=== PATIENT | male | born 1950 | race Caucasian/White ===

== ENCOUNTER 2021-06-07 13:43 | Emergency (ER) | payer MEDICARE, SELFPAY ==
--- NOTE | 2021-06-07 13:59 | ED.URI ---
HPI - URI/Sore Throat General Chief Complaint: Upper Respiratory Infection Stated Complaint: Congetion Source: patient and RN notes reviewed Mode of arrival: ambulatory Limitations: no limitations History of Present Illness MD elicited complaint: sore throat, rhinorrhea and nasal congestion Onset (ago): day(s) (4) Consistency: constant Severity: moderate Description of mucous: yellow Able to tolerate fluids by mouth: Yes Exacerbating factors: nothing Relieving factors: nothing Context: sick contacts Treatments prior to arrival: cold medicine Related Data Home Medications Medication Instructions Recorded Confirmed amlodipine [Norvasc] 5 mg PO DAILY 06/07/21 06/07/21 aspirin [Aspirin Low Dose] 81 mg PO DAILY 06/07/21 06/07/21 cholecalciferol (vitamin D3) 50 mcg PO DAILY 06/07/21 06/07/21 clopidogrel [Plavix] 75 mg PO DAILY 06/07/21 06/07/21 diazepam [Valium] 2 mg PO TID PRN 06/07/21 06/07/21 glucagon [Baqsimi] 3 mg INTRANASAL ONCE 06/07/21 06/07/21 insulin degludec [Tresiba 40 unit SUBCUT HS 06/07/21 06/07/21 FlexTouch U-200] insulin lispro [Humalog KwikPen 1 sliding scale dose SUBCUT 06/07/21 06/07/21 Insulin] USEASDIRECTD isosorbide mononitrate 120 mg PO DAILY 06/07/21 06/07/21 metformin 500 mg PO BIDWMEAL 06/07/21 06/07/21 metoprolol succinate [Toprol XL] 100 mg PO DAILY 06/07/21 06/07/21 nitroglycerin 0.4 mg SUBLINGUAL Q5-15M PRN 06/07/21 06/07/21 ropinirole [Requip] 0.25 mg PO TID 06/07/21 06/07/21 rosuvastatin [Crestor] 40 mg PO DAILY 06/07/21 06/07/21 sacubitril-valsartan [Entresto] 1 tablet PO BID 06/07/21 06/07/21 sertraline 100 mg PO DAILY 06/07/21 06/07/21 torsemide [Demadex] 10 mg PO BID 06/07/21 06/07/21 Allergies Allergy/AdvReac Type Severity Reaction Status Date / Time empagliflozin Allergy Nausea and Verified 06/07/21 14:08 [From Jardiance] Vomiting ticagrelor [From Brilinta] Allergy Insomnia Verified 06/07/21 14:08 Review of Systems Review of Systems: All systems reviewed & are unremarkable except as noted in HPI and below PMFSH Past Medical History Medical History (Updated 06/07/21 @ 15:17 by Walter Spain MD) Congestive heart failure Hyperlipidemia Hypertension Type 2 diabetes mellitus Social History Social History (Updated 06/07/21 @ 14:33 by Walter Spain MD) Smoking status: Never smoker Alcohol intake: current Alcohol use details: occasional Exam Const: General: healthy appearing, no acute distress and alert Nutritional Appearance: well nourished Orientation/consciousness: patient oriented x3 HENMT: Head: normal to inspection Eyes: Conjunctivae: conjunctivae normal Pupils: Equal, round and reactive pupils present EOM: EOMs intact bilaterally Neck: Neck: normal visual inspection and no lymphadenopathy Resp: Effort & Inspection: normal respiratory effort Auscultation: clear to auscultation bilaterally Cardio: Rate: regular rate Rhythm: regular rhythm GI: GI Palp: Yes Soft to palpation and No Tenderness to palpation present (GI) Auscultation: normal bowel sounds Back/Spine/Pelvis: Cervical Spine: cervical ROM normal Thoracic/Lumbar Spine: thoraco-lumbar ROM normal Skin: General skin exam: normal color Rashes: no rashes Neuro: General: patient oriented x3, moves all extremities, no meningeal signs, no focal motor deficits and CN's II-XI intact bilaterally Speech: normal speech Gait exam (Neuro): Normal gait present Extrem: General: normal to inspection Psych: Appearance: grossly normal and well kempt Mental Status: mental status grossly normal Affect: normal affect Attitude: cooperative Thought content: Yes Normal thought content present Course Vital Signs Vital signs: Vital Signs Temperature 36.8 C 06/07/21 14:01 Pulse Rate 71 06/07/21 14:01 Respiratory Rate 20 06/07/21 14:01 Blood Pressure 124/72 06/07/21 14:01 Pulse Oximetry 98 06/07/21 14:01 Temperature 36.6 C 06/07/21 15:32 Pulse Rate 73 06/07/21
[2021-06-07 14:01] VITALS: BP 124/72; PULSE 71; RESP 20; TEMP 36.8; O2SAT 98
[2021-06-07 15:09] LABS: Influenza A QL RT-PCR Negative (Negative); Influenza B QL RT-PCR Negative (Negative); SARS-CoV-2 RNA PCR Negative (Negative)
[2021-06-07 15:32] VITALS: BP 142/85; PULSE 73; RESP 20; TEMP 36.6; O2SAT 97
== END 2021-06-07 15:33 | disposition home or self-care (01) ==
PROVIDERS: Emergency Provider Emergency Medicine
DX: J00 Acute nasopharyngitis [common cold] (principal); Z20.822 Contact with and (suspected) exposure to COVID-19; I50.9 Heart failure, unspecified; E78.5 Hyperlipidemia, unspecified; I10 Essential (primary) hypertension; E11.9 Type 2 diabetes mellitus without complications
CPT/HCPCS: 87502; 99283; C9803; U0003; U0005

== ENCOUNTER 2021-11-11 11:07 | Outpatient (CLI) | payer MEDICARE, SELFPAY ==
[2021-11-11 19:42] LABS: SARS-CoV-2 RNA PCR Positive (Negative)
== END 2021-11-11 11:08 | disposition home or self-care (01) ==
LOC: CHSLAB 11:14
DX: U07.1 COVID-19 (principal)
CPT/HCPCS: C9803; U0003; U0005

== ENCOUNTER 2021-11-20 13:36 | Inpatient (IN) | payer MEDICARE, SELFPAY ==
[2021-11-20] VITALS (7 sets, daily range): BP systolic 100–137; BP diastolic 58–77; PULSE 56–77; RESP 16–20; TEMP 36.9–37.6; O2SAT 97–100; BMI 27.5
--- NOTE | ~2021-11-20 | CT_ITS ---
EXAMINATION: CTA chest PE protocol DATE: 11/20/2021 21:32 INDICATION: sob TECHNIQUE: Computed tomography angiography (CTA) of the chest was performed with 100 mL Omnipaque-350 intravenous contrast timed to evaluate the pulmonary arteries. Coronal maximum intensity projection 3D-reconstructions were created by the technologist. The dose-length product (DLP) was 764.33 mGy-cm. Automated exposure control and iterative reconstruction technique were employed. COMPARISON: X-ray chest same date. FINDINGS: Lung parenchyma and airways: Multifocal small, somewhat nodular appearing opacities in the dependent right lung likely represent atelectasis or perhaps aspiration in the appropriate clinical context. Pleura: Unremarkable. Thoracic inlet, axillae and chest wall: Unremarkable. Thoracic aorta: Atherosclerotic calcification. Mediastinum: Normal. Heart and pericardium: Prior CABG. Cardiomegaly. Coronary artery calcifications: Heavy. Upper abdomen: No significant finding. Bones: No acute osseous finding. Pulmonary arteries: Study quality: Adequate. No pulmonary emboli detected. IMPRESSION: No CT evidence of acute pulmonary embolus. Reviewed, dictated and finalized at location K.
--- NOTE | ~2021-11-20 | XR_ITS ---
EXAMINATION: XR chest 2V DATE: 11/20/2021 14:14 INDICATION: Chest pain TECHNIQUE: AP and lateral views of the chest are obtained. COMPARISON: None available FINDINGS: The lungs are free of acute opacities. No pleural effusion or pneumothorax. The cardiomedia stinal silhouette is normal. There is moderate thoracic spondylosis. Median sternotomy wires and medi astinal surgical clips are seen, likely from prior coronary artery bypass grafting. IMPRESSION: 1. No acute cardiopulmonary abnormality. Reviewed, dictated and finalized at location A.
--- NOTE | 2021-11-20 13:42 | ECG_ITS ---
Measurements Intervals [place] Rate: 73 P: 50 AR: 188 QRS: 6 QRSD: 146 T: 141 QT: 448 QTc: 496 Interpretive Statements SINUS RHYTHM LEFT BUNDLE BRANCH BLOCK [120+ ms QRS DURATION, 80+ ms Q/S IN V1/V2, 85+ ms R IN I/aVL/V5/V6] ABNORMAL ECG NO PREVIOUS ECG AVAILABLE FOR COMPARISON Electronically Signed On 11-20-2021 17:24:20 CDT by Stan Bentley M.D.
[2021-11-20 14:26] LABS: Basophils Percent Auto 0.3 % (0.2-1.2); Eosinophils Absolute Auto 0.1 K/mm3 (0-0.3); Eosinophils Percent Auto 1.1 % (0-4.4); Hematocrit 39.6 % (42.0-52.0); Hemoglobin 13.5 g/dL (14.0-18.0); Immature Granulocyte Absolute 0.05 K/mm3 (0.00-0.031); Immature Granulocyte Percent A 0.5 % (0-0.5); Lymphocytes Absolute Auto 1.08 K/mm3 (0.9-3.2); Lymphocytes Percent Auto 11.3 % (18.3-44.2); Mean Corpuscular HGB Conc 34.1 g/dl (32-36); Mean Corpuscular Hemoglobin 30.8 pg (26-34); Mean Corpuscular Volume 90.4 fl (80-100); Mean Platelet Volume 9.9 fl (7.4-10.4); Monocytes Absolute Auto 0.6 K/mm3 (0.1-0.6); Monocytes Percent Auto 6.4 % (2.6-8.5); Neutrophils Absolute Auto 7.7 K/mm3 (1.3-6.7); Neutrophils Percent Auto 80.4 % (45.5-73.1); Platelet Count Result 310 k/mm3 (150-375); Red Blood Count 4.38 M/mm3 (4.6-6.20); Red Cell Distribution Width 13.4 % (11.5-14.5); White Blood Count 9.6 K/mm3 (4.5-10.0)
[2021-11-20 14:34] LABS: Partial Thromboplastin Time 24.3 SECONDS (22.3-36.8)
[2021-11-20 14:37] LABS: Alanine Aminotransferase 29 U/L (6-50); Albumin Level 4.5 g/dL (3.5-5.1); Alkaline Phosphatase 57 U/L (38-126); Anion Gap 14 mmol/L (8-16); Aspartate Amino Transferase 27 U/L (17-59); Blood Urea Nitrogen 26 mg/dL (9-20); Calcium 9.3 mg/dL (8.4-10.2); Carbon Dioxide 21 mmol/L (22-30); Chloride 101 mmol/L (98-107); Estimated CRCL calculation 43 ml/min; Estimated Glomerular Filt Rate 46; Glucose 161 mg/dL (65-110); Lipase 329 U/L (23-300); Potassium 4.1 mmol/L (3.4-5.0); Sodium 136 mmol/L (137-145)
[2021-11-20 14:47] LABS: Troponin I 0.015 ng/mL (0.000-0.034)
--- NOTE | 2021-11-20 15:55 | ED.CHESTPAIN ---
HPI - Chest Pain General Chief Complaint: Chest Pain Stated Complaint: N/V, chest pain Time Seen by Provider: 11/20/21 15:28 History of Present Illness HPI narrative: Patient is a 71-year-old male who presents ER with chest pain. Began at 11 AM while sitting. Pressure similar chest. Radiated to the left arm with some numbness. Improved but still present. Has history of multiple stents. Has known heart failure. 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 No exertional component. He did experience shortness of breath with nausea and diaphoresis when this occurred. Related Data Home Medications Medication Instructions Recorded Confirmed amlodipine 5 mg tablet (Norvasc) 5 mg PO DAILY 06/07/21 06/07/21 aspirin 81 mg tablet,delayed 81 mg PO DAILY 06/07/21 06/07/21 release (Carrie Low Dose Aspirin) cholecalciferol (vitamin D3) 50 50 mcg PO DAILY 06/07/21 06/07/21 mcg (2,000 unit) capsule clopidogrel 75 mg tablet (Plavix) 75 mg PO DAILY 06/07/21 06/07/21 diazepam 2 mg tablet (Valium) 2 mg PO TID PRN Anxiety 06/07/21 06/07/21 glucagon 3 mg/actuation nasal 3 mg intranasal ONCE 06/07/21 06/07/21 spray (Baqsimi) insulin degludec 200 unit/mL (3 40 unit subcut HS 06/07/21 06/07/21 mL) subcutaneous pen (Tresiba FlexTouch U-200 insulin) insulin lispro 100 unit/mL 1 sliding scale dose subcut 06/07/21 06/07/21 subcutaneous pen (Humalog KwikPen USEASDIRECTD (U-100) Insulin) isosorbide mononitrate 120 mg 120 mg PO DAILY 06/07/21 06/07/21 tablet,extended release 24 hr metformin 500 mg tablet 500 mg PO BIDWMEAL 06/07/21 06/07/21 metoprolol succinate 100 mg 100 mg PO DAILY 06/07/21 06/07/21 tablet,extended release 24 hr (Toprol XL) nitroglycerin 0.4 mg sublingual 0.4 mg sublingual Q5-15M PRN chest 06/07/21 06/07/21 tablet pain ropinirole 0.25 mg tablet 0.25 mg PO TID 06/07/21 06/07/21 rosuvastatin 40 mg tablet (Crestor) 40 mg PO DAILY 06/07/21 06/07/21 sacubitril 24 mg-valsartan 26 mg 1 tablet PO BID 06/07/21 06/07/21 tablet (Entresto) sertraline 100 mg tablet 100 mg PO DAILY 06/07/21 06/07/21 torsemide 10 mg tablet 10 mg PO BID 06/07/21 06/07/21 Allergies Allergy/AdvReac Type Severity Reaction Status Date / Time empagliflozin AdvReac Nausea and Verified 11/20/21 17:00 [From Jardiance] Vomiting ticagrelor [From Brilinta] AdvReac Insomnia Verified 11/20/21 17:00 Review of Systems Review of Systems: All systems reviewed & are unremarkable except as noted in HPI and below Constitutional: Constitutional: Denies chills, Denies fatigue and Denies fever(s) Comments: Diaphoresis ENT: Denies nasal congestion and Denies sore throat Cardiovascular: Cardiovascular: Reports chest pain, Denies rapid heart rate and Reports radiating jaw, neck or arm pain Respiratory: Respiratory: Denies cough, Reports dyspnea and Denies wheezing Gastrointestinal: Gastrointestinal: Denies abdominal pain, Reports nausea and Denies vomiting Musculoskeletal: Musculoskeletal: Denies back pain and Denies arthralgias Neurologic: Denies syncope, Denies focal weakness and Denies numbness PMFSH Past Medical History Medical History (Updated 11/20/21 @ 18:46 by Yong Dangelo MD) Congestive heart failure Hyperlipidemia Hypertension Type 2 diabetes mellitus Surgical History Surgical History (Updated 11/20/21 @ 15:56 by Yong Dangelo MD) History of coronary artery bypass graft History of percutaneous coronary intervention Social History Social History (Updated 06/07/21 @ 14:33 by Walter Spain MD) Smoking status: Never smoker Alcohol intake: current Alcohol use details: occasional Exam Narrative: GENERAL: Well-appearing, well-nourished, and in no acute distress. HEAD: Normocephalic, atraumatic. EYES: PERRL and EOMI. CHEST: Clear to auscultation. No respiratory distress. HEART: Regular rate and rhythm. Normal peripheral pulses. ABDOMEN: Soft, nontender, nondistended. EXTREMITIES: Normal range of motio
[2021-11-20 17:21] LABS: Troponin I 0.274 ng/mL (0.000-0.034)
[2021-11-20] MEDS: HEPARIN SODIUM 5,000 UNITS/ML VIAL 4000 UNITS IV PUSH (17:52)
[2021-11-20] MEDS: HEPARIN SOD/D5W 100 UNITS/ML 25,000 UNITS/250 ML BAG 10 UNITS IV CONT (17:53)
--- NOTE | 2021-11-20 18:27 | ADMGEN ---
This patient, Joon Mcfarland, was admitted to IMU Room 210-01 at 1811. Patient/family oriented to hospital policies and general routines including ID bracelet, bed and alarms, visiting hours, pain management, procedures, bathroom and other care routines, personal items, smoking policy, room service/diet, and visiting hours. Information on how to activate the Rapid Response Team has been discussed. Patient/Family are encouraged to report perceived risks to care and to ask questions if they do not understand what they are told or what they should do.
--- NOTE | 2021-11-20 18:52 | ADMGEN ---
This patient, Joon Mcfarland, was admitted to IMU Room 210-01 11/20/21 at 1811. Patient/family oriented to hospital policies and general routines including ID bracelet, bed and alarms, visiting hours, pain management, procedures, bathroom and other care routines, personal items, smoking policy, room service/diet, and visiting hours. Information on how to activate the Rapid Response Team has been discussed. Patient/Family are encouraged to report perceived risks to care and to ask questions if they do not understand what they are told or what they should do.
[2021-11-20 20:05] LABS: Glucose Point of Care 119 mg/dl (65-105)
--- NOTE | 2021-11-20 20:37 | PM.IMHP ---
H&P: HPI History of Present Illness Date/Time: 11/20/21 20:37 Chief Complaint: chest pain Narrative: This is a 71-year-old male patient with the past medical history of coronary artery disease with quadruple bypass and 5 stents. His last stent was in 2019. He also has a medical history of being diabetic as well. The patient stated he has been taking and aspirin Plavix as prescribed. The patient stated he was taking nitro at home and that typically gets rid of his chest pain. The patient stated that he had chest pain that started around 11:00 a.m. this morning when he was just sitting around. The pressure was similar to when he had a myocardial infarction last time it radiated to his left arm and he had some numbness. It has improved some but is still present. He takes an aspirin every day but he was given 3 baby aspirin EN route to the hospital. His hematologist is at [facility]. The patient does have a history of CHF and has a device implanted that tells him when he has fluid overload. Troponin was 0.015 and the 2nd was 0.274. EKG was read as left bundle branch block. Cardiology has been called to consult. The patient is being admitted to observation status and change to inpatient status on the date of service of 11/20/2021 Review of Systems Review of Systems: See HPI All systems reviewed & are unremarkable except as noted in HPI and below Constitutional: Constitutional: Reports as per HPI and Reports no additional constitutional complaints Eyes: Eyes: Reports as per HPI and Reports no additional eye complaints ENT: Reports system reviewed and no additional complaints, except as documented and Reports Normal hearing present Cardiovascular: Cardiovascular: Reports no additional cardiovascular complaints Respiratory: Respiratory: Reports no additional respiratory complaints and Reports no additional respiratory complaints Gastrointestinal: Gastrointestinal: Reports as per HPI and Reports no additional gastrointestinal complaints Musculoskeletal: Musculoskeletal: Reports no additional musculoskeletal complaints Integumentary/Breasts: Skin/Breast: Reports system reviewed and no additional complaints, except as docu and Reports as per HPI Neurologic: Reports system reviewed and no additional complaints, except as documented, Reports as per HPI and Reports Normal hearing present Psychiatric: Psychiatric: Reports no additional psychiatric complaints and Reports as per HPI Endocrine: Endocrine: Reports no additional endocrine complaints Hematologic/Lymphatic: Hematologic/Lymphatic: Reports no additional hematologic/lymphatic complaints Allergic/Immunologic: Allergic/Immunologic: Reports no additional allergic/immunologic complaints [facility] Past Medical History Medical History (Updated 11/20/21 @ 20:50 by Tri Blankenship NP) Anxiety CAD (coronary artery disease) Congestive heart failure Depression Hyperlipidemia Hypertension Neuropathy RLS (restless legs syndrome) Type 2 diabetes mellitus Surgical History Surgical History (Updated 11/20/21 @ 20:51 by Tri Blankenship NP) History of coronary artery bypass graft Quadruple History of coronary artery stent placement X5 History of percutaneous coronary intervention The patient has a device called cardiac Mems that evaluates fluid overload and CHF Family History Family History (Updated 11/20/21 @ 20:51 by Tri Blankenship NP) Father COPD (chronic obstructive pulmonary disease) Mother COPD (chronic obstructive pulmonary disease) Heart disease Social History Social History (Updated 11/20/21 @ 20:52 by Tri Blankenship NP) Social History: The patient lives with his and 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 The patient has 2 children. His is the durable power energy attorney for healthcare. The patient probably drinks 6-7 beers a week. Lifelong nonsmoker does not use any marijuana or illicit drugs. Code stat
[2021-11-20] MEDS: METOPROLOL TARTRATE 12.5 MG TABLET PO (23:17)
[2021-11-20] MEDS: GABAPENTIN 300 MG CAPSULE PO (23:17)
[2021-11-20] MEDS: SACUBITRIL/VALSARTAN 49-51 MG TABLET 1 TABLET PO (23:18)
[2021-11-20] MEDS: SERTRALINE HCL 50 MG TABLET 100 MG PO (23:18)
[2021-11-20] MEDS: rOPINIRole HCL 0.25 MG TABLET PO (23:18)
[2021-11-20] MEDS: INSULIN GLARGINE (*BKC) 100 UNITS/ML 44 UNITS SUB-Q (23:22)
[2021-11-20 23:54] LABS: Anion Gap 12 mmol/L (8-16); Blood Urea Nitrogen 27 mg/dL (9-20); Calcium 9.5 mg/dL (8.4-10.2); Carbon Dioxide 29 mmol/L (22-30); Chloride 99 mmol/L (98-107); Estimated CRCL calculation 43 ml/min; Estimated Glomerular Filt Rate 46; Glucose 132 mg/dL (65-110); Magnesium 1.9 mg/dL (1.6-2.3); Potassium 4.5 mmol/L (3.4-5.0); Sodium 140 mmol/L (137-145)
[2021-11-21] VITALS (17 sets, daily range): BP systolic 91–120; BP diastolic 48–65; PULSE 55–75; RESP 16–20; TEMP 36.4–37.2; O2SAT 94–97
[2021-11-21 00:48] LABS: Partial Thromboplastin Time 52.6 SECONDS (22.3-36.8)
[2021-11-21] MEDS: HEPARIN SODIUM 5,000 UNITS/ML VIAL 4000 UNITS IV PUSH (01:01)
[2021-11-21 02:04] LABS: Hemoglobin A1C 7.4 % (<5.7)
[2021-11-21 07:39] LABS: Basophils Percent Auto 0.2 % (0.2-1.2); Eosinophils Absolute Auto 0.1 K/mm3 (0-0.3); Eosinophils Percent Auto 1.5 % (0-4.4); Hematocrit 41.9 % (42.0-52.0); Hemoglobin 13.6 g/dL (14.0-18.0); Immature Granulocyte Absolute 0.01 K/mm3 (0.00-0.031); Immature Granulocyte Percent A 0.1 % (0-0.5); Lymphocytes Percent Auto 22.3 % (18.3-44.2); Mean Corpuscular HGB Conc 32.5 g/dl (32-36); Mean Corpuscular Hemoglobin 30.6 pg (26-34); Mean Corpuscular Volume 94.4 fl (80-100); Mean Platelet Volume 9.8 fl (7.4-10.4); Monocytes Absolute Auto 0.6 K/mm3 (0.1-0.6); Monocytes Percent Auto 7.2 % (2.6-8.5); Neutrophils Absolute Auto 5.5 K/mm3 (1.3-6.7); Neutrophils Percent Auto 68.7 % (45.5-73.1); Platelet Count Result 289 k/mm3 (150-375); Red Blood Count 4.44 M/mm3 (4.6-6.20); Red Cell Distribution Width 13.8 % (11.5-14.5); White Blood Count 8.1 K/mm3 (4.5-10.0)
[2021-11-21 07:49] LABS: Lactic Acid Reflex 1.4 mmol/L (0.7-2.0)
[2021-11-21 07:51] LABS: Alanine Aminotransferase 30 U/L (6-50); Albumin Level 4.1 g/dL (3.5-5.1); Alkaline Phosphatase 57 U/L (38-126); Anion Gap 10 mmol/L (8-16); Aspartate Amino Transferase 87 U/L (17-59); Bilirubin,Total 0.7 mg/dL (0.2-1.3); Blood Urea Nitrogen 26 mg/dL (9-20); Calcium 9.4 mg/dL (8.4-10.2); Carbon Dioxide 30 mmol/L (22-30); Chloride 100 mmol/L (98-107); Creatine Kinase 418 U/L (55-170); Estimated CRCL calculation 43 ml/min; Estimated Glomerular Filt Rate 46; Glucose 142 mg/dL (65-110); Lactate Dehydrogenase 233 U/L (120-246); Magnesium 2.2 mg/dL (1.6-2.3); Sodium 140 mmol/L (137-145)
[2021-11-21 07:52] LABS: Partial Thromboplastin Time 122.1 SECONDS (22.3-36.8)
[2021-11-21 08:39] LABS: Glucose Point of Care 126 mg/dl (65-105)
[2021-11-21] MEDS: SACUBITRIL/VALSARTAN 49-51 MG TABLET 1 TABLET PO ×2 (09:34→20:36)
[2021-11-21] MEDS: ROSUVASTATIN 10 MG TABLET 40 MG PO (09:34)
[2021-11-21] MEDS: METOPROLOL TARTRATE 12.5 MG TABLET PO ×2 (09:34→22:59)
[2021-11-21] MEDS: rOPINIRole HCL 0.25 MG TABLET PO ×2 (09:34→14:55)
[2021-11-21] MEDS: TORSEMIDE 10 MG TABLET PO ×2 (09:35→16:37)
--- NOTE | 2021-11-21 11:43 | PM.CNCAR ---
Assessment and Plan Assessment and plan (1) ACS (acute coronary syndrome): Code(s): I24.9 - Acute ischemic heart disease, unspecified Status: Acute Assessment and Plan: Will continue heparin. I am not sure why aspirin and clopidogrel are being held but will resume aspirin 81 mg p.o. daily as well as clopidogrel 75 mg p.o. daily. Metoprolol 12.5 mg p.o. b.i.d. is added. Continue isosorbide, rosuvastatin, Entresto Hold metformin. He will be kept NPO after midnight for coronary angiogram tomorrow. 2D echocardiogram Doppler will also be ordered and reviewed. (2) CAD (coronary artery disease): Code(s): I25.10 - Atherosclerotic heart disease of [place] coronary artery without angina pectoris Status: Acute Assessment and Plan: Will request and review records from [facility] (3) Hypertension: Code(s): I10 - Essential (primary) hypertension Status: Acute Assessment and Plan: At goal (4) Type 2 diabetes mellitus: Code(s): E11.9 - Type 2 diabetes mellitus without complications Status: Acute Assessment and Plan: Per hospitalist (5) Hyperlipidemia: Code(s): E78.5 - Hyperlipidemia, unspecified Status: Acute Assessment and Plan: On high-dose statin (6) Congestive heart failure: Code(s): I50.9 - Heart failure, unspecified Status: Acute Assessment and Plan: On Entresto History of Present Illness History of Present Illness Consult date/time: 11/21/21 11:43 Requesting physician: Yong Dangelo MD Consult reason: chest pain Reason For Visit: Chest Pain Narrative: Reason consultation: Chest pain, ACS Date of service 11/21/2021 Requesting physician: Dr. Dangelo History patient is a 71-year-old male who has history of coronary disease and had bypass in [facility]. This was a 4 vessel bypass at that time. Since then he has had at least 5 stents. Most recent stent was in 2019 at [facility]. He follows with Luis Fernando Gonzalez at [facility] but recently moved to the [facility]. Yesterday he started to develop some tightness in his chest at about 11 30 the morning. It was achiness. It felt similar to his previous anginal pain. He took 2 sublingual nitroglycerines which is not particularly help his symptoms but shortly thereafter he started to have nausea and vomiting. EMS was called and he was brought directly to [facility]. While it [facility] he was triaged and then sent to the waiting room. He eventually he was seen in the emergency department. EKG did show left bundle branch block. Symptoms gradually started to fade away over period of a few hours. He did have some and a numbness in the left arm. He was initially sweaty and short of breath. He has not had any further chest tightness or pressure since yesterday afternoon. Troponins have turned positive and most recent troponin is over 2. Review of Systems Review of Systems: All systems reviewed & are unremarkable except as noted in HPI and below Constitutional: Constitutional: Denies body ache(s) Eyes: Eyes: Denies blurry vision ENT: Reports Normal hearing present Cardiovascular: Cardiovascular: Reports chest pain Respiratory: Respiratory: Denies chest congestion Gastrointestinal: Gastrointestinal: Denies abdominal pain Genitourinary: Genitourinary: Denies hematuria Musculoskeletal: Musculoskeletal: Denies back pain Integumentary/Breasts: Skin/Breast: Denies dry skin Neurologic: Denies confusion Psychiatric: Psychiatric: Denies anxiety Endocrine: Endocrine: Denies excessive sweating Hematologic/Lymphatic: Hematologic/Lymphatic: Denies easy bleeding Allergic/Immunologic: Allergic/Immunologic: Denies GI upset with certain foods PMFSH Past Medical History Medical History Anxiety CAD (coronary artery disease) Congestive heart failure Depression
[2021-11-21 11:53] LABS: Glucose Point of Care 217 mg/dl (65-105)
--- NOTE | 2021-11-21 11:56 | ECG_ITS ---
Measurements Intervals [place] Rate: 55 P: 50 [place]: 210 QRS: -26 QRSD: 137 T: 149 QT: 503 QTc: 485 Interpretive Statements SINUS BRADYCARDIA WITH FIRST DEGREE AV BLOCK INCOMPLETE LEFT BUNDLE BRANCH BLOCK ABNORMAL ECG COMPARED TO ECG 11/20/2021 13:42:22 LEFT BUNDLE BRANCH BLOCK IS NOW INCOMPLETE Electronically Signed On 11-22-2021 16:49:02 CDT by Krishna Gray M.D.
--- NOTE | 2021-11-21 14:24 | PM.IMPN ---
Progress Note: A&P Assessment and Plan (1) Non-ST elevation ND (NSTEMI): Code(s): I21.4 - Non-ST elevation (NSTEMI) myocardial infarction Status: Acute Assessment and Plan: -continue to trend troponins. The 1st set was negative and the 2nd troponin was 0.274. The patient has a strong cardiac history with quadruple bypass and 5 stents -the patient had tried nitro at home and also takes aspirin at home as well as Plavix -cardiology has been consulted. Further recommendation per Cardiology. -continue with heparin drip -I will hold aspirin and Plavix for now. -analgesics as needed 11/21/2021 interval history: 71-year-old male with history of coronary artery disease status post CABG and 5 stents presented with chest pain is found to have elevated tropes currently on heparin drip. seen by cardiology resume aspirin Plavix and added metoprolol 12.5 mg b.i.d. and continue isosorbide nitrate, Crestor, and entresto, will hold metformin, patient is scheduled to have cardiac catheterization tomorrow will keep the patient NPO after midnight will follow-up and further recommendation to follow (2) CAD (coronary artery disease): Code(s): I25.10 - Atherosclerotic heart disease of [place] coronary artery without angina pectoris Status: Acute Assessment and Plan: -history of a quadruple bypass with 5 stents. 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 -continue amlodipine as blood pressure allows (4) Type 2 diabetes mellitus: Code(s): E11.9 - Type 2 diabetes mellitus without complications Status: Acute Assessment and Plan: -hold metformin in the event that he may need to go to cardiac catheterization -Accu-Cheks AC and HS with sliding scale (5) Anxiety: Code(s): F41.9 - Anxiety disorder, unspecified Status: Acute Assessment and Plan: -continue with home medication of volume (6) Hyperlipidemia: Code(s): E78.5 - Hyperlipidemia, unspecified Status: Acute Assessment and Plan: -continue with rosuvastatin (7) Congestive heart failure: Code(s): I50.9 - Heart failure, unspecified Status: Acute Assessment and Plan: -the patient is on Entresto we can continue with that and monitor his BUN and creatinine -continue Toprol -continue torsemide if blood pressure allows. (8) Neuropathy: Code(s): G62.9 - Polyneuropathy, unspecified Status: Acute Assessment and Plan: -continue gabapentin (9) Depression: Code(s): F32.A - Depression, unspecified Status: Acute Assessment and Plan: -continue sertraline (10) RLS (restless legs syndrome): Code(s): G25.81 - Restless legs syndrome Status: Acute Assessment and Plan: -continue gabapentin -continue Requip Subjective Date/time seen: 11/21/21 14:24 HPI-Narrative: This is a 71-year-old male patient with the past medical history of coronary artery disease with quadruple bypass and 5 stents.? His last stent was in 2019.? He also has a medical history of being diabetic as well.? The patient stated he has been taking and aspirin Plavix as prescribed.? The patient stated he was taking nitro at home and that typically gets rid of his chest pain.? The patient stated that he had chest pain that started around 11:00 a.m. this morning when he was just sitting around.? The pressure was similar to when he had a myocardial infarction last time it radiated to his left arm and he had some numbness.? It has improved some but is still present.? He takes an aspirin every day but he was given 3 baby aspirin EN route to the hospital.? His taxi cab driver is at [facility].? The patient does have a history of CHF and has a device implanted that tells him when he
[2021-11-21 14:34] LABS: Partial Thromboplastin Time 81.8 SECONDS (22.3-36.8)
[2021-11-21] MEDS: HEPARIN SOD/D5W 100 UNITS/ML 25,000 UNITS/250 ML BAG 12 UNITS IV CONT (14:54)
[2021-11-21] MEDS: CLOPIDOGREL BISULFATE 75 MG TABLET PO (14:55)
[2021-11-21] MEDS: ASPIRIN 81 MG ENTERIC TABLET PO (14:55)
[2021-11-21 16:56] LABS: Glucose Point of Care 181 mg/dl (65-105)
[2021-11-21 19:58] LABS: Glucose Point of Care 238 mg/dl (65-105)
[2021-11-21] MEDS: INSULIN GLARGINE (*BKC) 100 UNITS/ML 44 UNITS SUB-Q (20:30)
[2021-11-21] MEDS: GABAPENTIN 300 MG CAPSULE PO (20:30)
[2021-11-21] MEDS: SERTRALINE HCL 50 MG TABLET 100 MG PO (20:36)
[2021-11-21 21:26] LABS: Partial Thromboplastin Time 65.1 SECONDS (22.3-36.8)
[2021-11-21] MEDS: HEPARIN SODIUM 5,000 UNITS/ML VIAL 3500 UNITS IV PUSH (21:47)
[2021-11-22] VITALS (29 sets, daily range): BP systolic 89–125; BP diastolic 49–71; PULSE 52–70; RESP 12–20; TEMP 35.9–36.9; O2SAT 91–98; BMI 27.8
--- NOTE | 2021-11-22 | ECHO_ITS ---
Patient Info Name: Joon Mcfarland Age: 71 years : 1950 Gender: Male Ht: 71 in Wt: 200 lbs BSA: 2.15 m2 HR: 57 bpm BP: 106 / 58 mmHg Heart Rhythm: Sinus Rhythm Technical Quality: Fair Exam Date: 11/22/2021 8:36 AM Exam Location: [facility] Pulmonary Patient Status: Inpatient Admit Date: 11/20/2021 Staff Ordering Physician: Stan Bentley MD Signaler: Pina Ruelas RDCS Attending Provider: Gerardo Fajardo DO Referring Physician: Mc HARRIS; Exam Type: CA echo dop color flow w con Study Info Indications - acs Complete two-dimensional, color flow and Doppler transthoracic echocardiogram is performed with contrast to opacify the left ventricle and to improve the deliniation of the left ventricle endocardial borders. Contrast/Agitated Saline Contrast/Ag. Saline: Definity Amount: 3.00 ml Administered By: Pina Ruelas RDCS Existing IV Access: Yes IV Access Condition: patent with no signs of infiltration Summary 1. Definity contrast used to improve visualization. 2. Posterior segment is akinetic. 3. Left ventricular systolic function is moderately reduced, estimated at 35-40%. 4. Left atrial chamber dimension is moderately enlarged. 5. There is mild aortic valve sclerosis. 6. The mitral valve annulus is moderately calcified. Left Ventricle Left ventricular chamber dimension is mildly enlarged. Left ventricular systolic function is moderately reduced, estimated at 35-40%. There is mild concentric increased left ventricular wall thickness. The left ventricular diastolic function is grade I diastolic dysfunction. Definity contrast used to improve visualization. Posterior segment is akinetic. Right Ventricle Right ventricular chamber dimension is normal. Left Atria Left atrial chamber dimension is moderately enlarged. Right Atria Right atrial chamber dimension is normal. Aortic Valve The aortic valve is trileaflet. There is mild aortic valve sclerosis. Pulmonic Valve The pulmonic valve is not well visualized. Mitral Valve The mitral valve has normal leaflets. The mitral valve annulus is moderately calcified. Tricuspid Valve The tricuspid valve leaflets are normal. Pericardium/Pleural The pericardium appears normal. Aorta The aortic root size at the sinus of Valsalva is normal. Left Ventricular Outflow Tract Name Value Normal LVOT 2D LVOT Diameter 2.05 cm LVOT Doppler LVOT Peak Gradient 1 mmHg LVOT Mean Gradient 1 mmHg LVOT VTI 14.36 cm LVOT VTI/AV VTI Ratio 0.55 LVOT Stroke Volume 47.40 ml LVOT CO 2.38 l/min LVOT CI 1.11 L/min/m2 Pulmonic Valve Name Value Normal RVOT Doppler
[2021-11-22 05:07] LABS: Partial Thromboplastin Time 141.3 SECONDS (22.3-36.8)
[2021-11-22 07:50] LABS: Glucose Point of Care 110 mg/dl (65-105)
[2021-11-22] MEDS: SODIUM CHLORIDE 0.9% IV 500 ML 100 ML IV CONT (09:08)
[2021-11-22] MEDS: PERFLUTREN LIPID MICROSPHERES 1.5 ML VIAL DILUTED TO 10 ML TOTAL VOLUME IV PUSH (09:09)
[2021-11-22] MEDS: SACUBITRIL/VALSARTAN 49-51 MG TABLET 1 TABLET PO ×2 (09:10→20:12)
[2021-11-22] MEDS: TORSEMIDE 10 MG TABLET PO ×2 (09:10→16:19)
[2021-11-22] MEDS: ROSUVASTATIN 10 MG TABLET 40 MG PO (09:10)
[2021-11-22] MEDS: rOPINIRole HCL 0.25 MG TABLET PO ×2 (09:10→16:19)
--- NOTE | 2021-11-22 09:10 | IVDEFINITY ---
Prior to administration of IV Definity the patient was educated on the risks and benefits of the imaging enhancing agent including potential adverse side effects. The patient verbalized understanding. Allergies were verified. No exclusion criteria were identified and at least one of the following inclusion criteria were met: 1) physician request, 2) patient technically difficult to image (per the [place] [employer]ocardi[employer] guidelines of two or more segments not discernable within the apical view), or 3) questionable left ventricular function. ?
[2021-11-22] MEDS: METOPROLOL TARTRATE 12.5 MG TABLET PO ×2 (09:11→20:13)
[2021-11-22] MEDS: CLOPIDOGREL BISULFATE 75 MG TABLET PO (10:34)
[2021-11-22] MEDS: ASPIRIN 81 MG ENTERIC TABLET PO (10:34)
[2021-11-22] MEDS: HEPARIN SOD/D5W 100 UNITS/ML 25,000 UNITS/250 ML BAG 11 UNITS IV CONT (10:36)
--- NOTE | 2021-11-22 10:57 | WPDMODSED ---
Moderate Sedation Note-Pt Data Patient Data Diagnosis: acute coronary syndrome Present Complaint: chest pain Procedure to be performed/Plan: left heart catheterization with vein graft and AZALIA graft angiography Allergies Allergy/AdvReac Type Severity Reaction Status Date / Time dulaglutide [From Trulicity] AdvReac Nausea and Verified 11/22/21 10:58 Vomiting empagliflozin AdvReac Nausea and Verified 11/20/21 20:53 [From Jardiance] Vomiting semaglutide [From Ozempic] AdvReac Nausea and Verified 11/22/21 10:58 Vomiting ticagrelor [From Brilinta] AdvReac Insomnia Verified 11/22/21 10:57 Home Medications Medication Instructions Recorded Confirmed Type aspirin 81 mg tablet,delayed 81 mg PO DAILY 06/07/21 11/20/21 History release (Carrie Low Dose Aspirin) cholecalciferol (vitamin D3) 50 50 mcg PO DAILY 06/07/21 11/20/21 History mcg (2,000 unit) capsule clopidogrel 75 mg tablet (Plavix) 75 mg PO DAILY 06/07/21 11/20/21 History insulin degludec 200 unit/mL (3 44 unit subcut HS 06/07/21 11/20/21 History mL) subcutaneous pen (Tresiba FlexTouch U-200 insulin) insulin lispro 100 unit/mL 1 sliding scale dose subcut 06/07/21 11/20/21 History subcutaneous pen (Humalog KwikPen USEASDIRECTD (U-100) Insulin) metformin 500 mg tablet 500 mg PO BIDWMEAL 06/07/21 11/20/21 History nitroglycerin 0.4 mg sublingual 0.4 mg sublingual Q5-15M PRN chest 06/07/21 11/20/21 History tablet pain ropinirole 0.25 mg tablet 0.25 mg PO TID 06/07/21 11/20/21 History rosuvastatin 40 mg tablet (Crestor) 40 mg PO DAILY 06/07/21 11/20/21 History sertraline 100 mg tablet 100 mg PO HS 06/07/21 11/20/21 History torsemide 10 mg tablet 10 mg PO BID 06/07/21 11/20/21 History gabapentin 300 mg capsule 300 mg PO HS 11/20/21 11/20/21 History glucagon 3 mg/actuation nasal 3 mg intranasal ONCE PRN 11/20/21 11/20/21 History spray (Baqsimi) Hypoglycemia ketoconazole 2 % topical cream 1 applic topical DAILY PRN fungal 11/20/21 11/20/21 History sacubitril 49 mg-valsartan 51 mg 1 tablet PO BID 11/20/21 11/20/21 History tablet (Entresto) Current Medications: Active Medications Acetaminophen (Acetaminophen 325 Mg Tablet) 650 mg PO Q4H PRN PRN Reason: Mild Pain (1-3) or Fever Hydrocodone Bitart/Acetaminophen (Hydrocodone/Acetaminophen (*Crx) 5-325 Mg Tablet) 1 tab PO Q4H PRN PRN Reason: Pain Rated 4-6 Aspirin (Aspirin 81 Mg Enteric Tablet) 81 mg PO [facility] Last Admin: 11/22/21 10:34 Dose: 81 mg Clopidogrel Bisulfate (Clopidogrel Bisulfate 75 Mg Tablet) 75 mg PO [facility] Last Admin: 11/22/21 10:34 Dose: 75 mg Dextrose (Dextrose 50% 25 Gm/50 Ml Syringe) 12.5 gm IV PUSH PRN PRN; Protocol PRN Reason: Hypoglycemia Gabapentin (Gabapentin 300 Mg Capsule) 300 mg PO [facility] Last Admin: 11/21/21 20:30 Dose: 300 mg Glucagon (Glucagon For Inj 1 Mg Vial) 1 mg IM PRN PRN; Protocol PRN Reason: Hypoglycemia Glucose (Glucose Oral Gel 15 Gm Of Glucse In 37.5 Gm Tube) 15 gm PO PRN PRN; Protocol PRN Reason: Hypoglycemia Heparin Sodium (Porcine) (Heparin Sodium 5,000 Units/Ml Vial) 4,000 units IV PUSH PRN PRN PRN Reason: aPTT less than 55 seconds Last Admin: 11/21/21 01:01 Dose: 4,000 units Heparin Sodium (Porcine) (Heparin Sodium 5,000 Units/Ml Vial) 3,500 units IV PUSH PRN PRN PRN Reason: aPTT 55 - 70 seconds Last Admin: 11/21/21 21:47 Dose: 3,500 units Heparin Sodium/Dextrose (Heparin Sodium/D5w 100 Units/Ml) 25,000 units in 250 mls @ 11 mls/hr IV CONT .[id number] [facility]; Protocol Last Admin: 11/22/21 10:36 Dose: 1,100 units/hr, 11 mls/hr Dextrose (Dextrose 5% 1,000 Ml) 1,000 mls @ 100 mls/hr IVPB PRN PRN; Protocol PRN Reason: Hypoglycemia Sodium Chloride (Normal Saline Iv) 500 mls @ 100 mls/hr IV CONT .Q5H CRISTHIAN Last Admin: 11/22/21 09:08 Dose: 100 mls/hr Insulin Aspart (Insulin Aspart (*Bkc) 100 Units/Ml) 2 - 5 units SUB-Q TIDWM CRISTHIAN; Protocol Last Admin: 11/22/21 07:53 Dose: Not Given Insulin Glargine (I
--- NOTE | 2021-11-22 11:37 | WPDCARDPROC ---
Cardiac Cath Procedure Note Date of procedure:: 11/22/21 Performing physician:: Krishna Gary MD Indication:: Acute coronary syndrome Brief clinical history:: this is a 71-year-old man with well known multivessel coronary disease who receives his care elsewhere. He was transferred here over the weekend from an outlying hospital after an episode of chest pain and a modest troponin rise. His ECG demonstrates left bundle branch block. Old records regarding of this available at this hospital. Apparently the patient underwent bypass grafting 2000. According to previous cath reports that have been obtained vein grafts to his right coronary and circumflex are known to be closed. AZALIA to his LAD and vein graft to a diagonal are known to be open. He appears to have evidence of moderate ischemic cardiomyopathy. In this setting a follow-up angiogram has been recommended. Procedure Procedure performed:: Coronary angiography angiography of saphenous vein to diagonal left internal mammary graft angiography Sedation/Medication given:: fentanyl 50 mg Versed 2 mg case start time 11:08 a.m. case end time 11:20 a.m. sedation provided by Ascencion Hampton RN, trained observer Access site:: right femoral artery Estimated blood loss:: 20 cc Procedure note:: this patient was brought to the cardiac catheterization lab in the postabsorptive state where the right femoral triangle was prepared and draped in the normal fashion. Anesthesia was provided with 1% lidocaine infiltrated locally. Using Seldinger technique the right femoral artery was punctured and a 5 Uzbek vascular sheath was placed. because of renal insufficiency I elected not to perform a left ventriculogram. A 5 Uzbek FL4 catheter was used to engage and inject the left coronary artery in the WIGGINS caudal and BRADLEY cranial projections. Following this a 5 Uzbek JR4 catheter was used to and engaged the [place] right coronary artery as well as the vein graft to the diagonal as well as the left internal mammary. The cineangiograms were then reviewed and the case was terminated the patient was taken to the holding area for manual sheath removal. 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 Findings:: Hemodynamics: Central aortic pressure was 117/56. The left ventricle was not entered during this procedure left main coronary artery is of medium caliber and has a distal 90% stenosis. The left anterior descending is a 50 severely diffusely diseased artery that is 100% occluded after a small 1st septal perforating branch takes its origin. The circumflex is a severely diffusely diseased artery that is 100% occluded proximally. Right coronary artery is large in caliber and was dominant to the posterior circulation. The right coronary artery is heavily calcified there is a visible stent material in the 2nd portion of the RCA. In this area there is about 40% stenosis. Proximally and distally there are diffuse atherosclerotic irregularities but no significant stenosis is identified. The RPDA is patent and mildly disease. The RPL branch is 100% occluded proximally. According to the reports this is known to be chronic. Saphenous vein graft to the diagonal was engaged and injected is a moderate-sized caliber of saphenous vein. There is stent material in a long segment of this vein graft most of which is nicely patent. There is about 40-50% stenosis in the mid shaft segment of this where the stent material is located. The anastomosis to the diagonal is patent it fills small diagonal branch nicely. Injection of the left internal mammary shows it is a medium caliber segment of AZALIA it is nicely patent without any significant degeneration or tortuosity. Its anastomosis into the LAD is patent the LAD itself is a medium caliber vessel and is filled down to the apex from the AZALIA. Conclusion:: 1Karly Funes
[2021-11-22 11:43] LABS: Activated Clotting Time 127 SEC (74-137)
[2021-11-22 14:51] LABS: Glucose Point of Care 76 mg/dl (65-105)
[2021-11-22 15:13] LABS: Partial Thromboplastin Time 24.6 SECONDS (22.3-36.8)
[2021-11-22] MEDS: SODIUM CHLORIDE 0.9% IV 1,000 ML 125 ML IV CONT (16:18)
--- NOTE | 2021-11-22 17:19 | PM.IMPN ---
Progress Note: A&P Assessment and Plan (1) Non-ST elevation [place] (NSTEMI): Code(s): I21.4 - Non-ST elevation (NSTEMI) myocardial infarction Status: Acute Assessment and Plan: -continue to trend troponins. The 1st set was negative and the 2nd troponin was 0.274. The patient has a strong cardiac history with quadruple bypass and 5 stents -the patient had tried nitro at home and also takes aspirin at home as well as Plavix -cardiology has been consulted. Further recommendation per Cardiology. -continue with heparin drip -I will hold aspirin and Plavix for now. -analgesics as needed 11/21/2021 interval history: 71-year-old male with history of coronary artery disease status post CABG and 5 stents presented with chest pain is found to have elevated tropes currently on heparin drip. seen by cardiology resume aspirin Plavix and added metoprolol 12.5 mg b.i.d. and continue isosorbide nitrate, Crestor, and entresto, will hold metformin, patient is scheduled to have cardiac catheterization tomorrow will keep the patient NPO after midnight will follow-up and further recommendation to follow. 11/22/2021 interval history: 71-year-old male with history of coronary artery disease status post CABG and 5 stents presented with chest pain was found to have elevated tropes currently on heparin drip. seen by cardiology resume aspirin Plavix and added metoprolol 12.5 mg b.i.d. and continue isosorbide nitrate, Crestor, and entresto, will hold metformin, today patient had a cardiac catheterization it showed similar stenosis of coronary artery disease, no intervention was done, inbound sales consultant recommended patient to follow with his primary inbound sales consultant, patient remains clinically stable possible discharge the patient home tomorrow. (2) CAD (coronary artery disease): Code(s): I25.10 - Atherosclerotic heart disease of [place] coronary artery without angina pectoris Status: Acute Assessment and Plan: -history of a quadruple bypass with 5 stents. -patient's inbound sales consultant is at [facility] (3) Hypertension: Code(s): I10 - Essential (primary) hypertension Status: Acute Assessment and Plan: -continue with metoprolol that he takes from home -he is also on Entresto for his CHF. -continue amlodipine as blood pressure allows (4) Type 2 diabetes mellitus: Code(s): E11.9 - Type 2 diabetes mellitus without complications Status: Acute Assessment and Plan: -hold metformin in the event that he may need to go to cardiac catheterization -Accu-Cheks AC and HS with sliding scale (5) Anxiety: Code(s): F41.9 - Anxiety disorder, unspecified Status: Acute Assessment and Plan: -continue with home medication of volume (6) Hyperlipidemia: Code(s): E78.5 - Hyperlipidemia, unspecified Status: Acute Assessment and Plan: -continue with rosuvastatin (7) Congestive heart failure: Code(s): I50.9 - Heart failure, unspecified Status: Acute Assessment and Plan: -the patient is on Entresto we can continue with that and monitor his BUN and creatinine -continue Toprol -continue torsemide if blood pressure allows. (8) Neuropathy: Code(s): G62.9 - Polyneuropathy, unspecified Status: Acute Assessment and Plan: -continue gabapentin (9) Depression: Code(s): F32.A - Depression, unspecified Status: Acute Assessment and Plan: -continue sertraline (10) RLS (restless legs syndrome): Code(s): G25.81 - Restless legs syndrome Status: Acute Assessment and Plan: -continue gabapentin -continue Requip Subjective Date/time seen: 11/22/21 17:19 11/22/2021 interval history: 71-year-old male with history of coronary artery disease status post CABG and 5 stents presented with chest pain was found to have elevated tropes currently on heparin drip. seen by cardiology resume aspirin Plavix and added met
[2021-11-22 17:36] LABS: Glucose Point of Care 225 mg/dl (65-105)
[2021-11-22] MEDS: INSULIN ASPART (*BKC) 100 UNITS/ML SUB-Q (18:26)
[2021-11-22] MEDS: GABAPENTIN 300 MG CAPSULE PO (20:12)
[2021-11-22] MEDS: SERTRALINE HCL 50 MG TABLET 100 MG PO (20:13)
[2021-11-22] MEDS: INSULIN GLARGINE (*BKC) 100 UNITS/ML 44 UNITS SUB-Q (20:14)
[2021-11-22 21:47] LABS: Glucose Point of Care 233 mg/dl (65-105)
[2021-11-23] VITALS (8 sets, daily range): BP systolic 110–135; BP diastolic 61–66; PULSE 51–71; RESP 16–18; TEMP 36.1–36.3; O2SAT 97
[2021-11-23 08:03] LABS: Glucose Point of Care 122 mg/dl (65-105)
[2021-11-23] MEDS: METOPROLOL TARTRATE 12.5 MG TABLET PO (08:19)
[2021-11-23] MEDS: CLOPIDOGREL BISULFATE 75 MG TABLET PO (08:19)
[2021-11-23] MEDS: ASPIRIN 81 MG ENTERIC TABLET PO (08:19)
[2021-11-23] MEDS: ROSUVASTATIN 10 MG TABLET 40 MG PO (08:19)
[2021-11-23] MEDS: rOPINIRole HCL 0.25 MG TABLET PO (08:19)
[2021-11-23] MEDS: SACUBITRIL/VALSARTAN 49-51 MG TABLET 1 TABLET PO (08:19)
[2021-11-23] MEDS: TORSEMIDE 10 MG TABLET PO (08:19)
--- NOTE | 2021-11-23 08:47 | PM.PNCARD ---
Progress Note: A&P Assessment and Plan (1) ACS (acute coronary syndrome): Code(s): I24.9 - Acute ischemic heart disease, unspecified Status: Acute Assessment and Plan: Coronary angiogram performed yesterday with findings detailed below: Left main coronary artery is of medium caliber and has a distal 90% stenosis. The left anterior descending is a 50 severely diffusely diseased artery that is 100% occluded after a small 1st septal perforating branch takes its origin. The circumflex is a severely diffusely diseased artery that is 100% occluded proximally. Right coronary artery is large in caliber and was dominant to the posterior circulation. The right coronary artery is heavily calcified there is a visible stent material in the 2nd portion of the RCA. In this area there is about 40% stenosis. Proximally and distally there are diffuse atherosclerotic irregularities but no significant stenosis is identified. The RPDA is patent and mildly disease. The RPL branch is 100% occluded proximally. According to the reports this is known to be chronic. Saphenous vein graft to the diagonal was engaged and injected is a moderate-sized caliber of saphenous vein. There is stent material in a long segment of this vein graft most of which is nicely patent. There is about 40-50% stenosis in the mid shaft segment of this where the stent material is located. The anastomosis to the diagonal is patent it fills small diagonal branch nicely. Injection of the left internal mammary shows it is a medium caliber segment of AZALIA it is nicely patent without any significant degeneration or tortuosity. Its anastomosis into the LAD is patent the LAD itself is a medium caliber vessel and is filled down to the apex from the AZALIA. Plan to continue current medical therapy with ASA, plavix, statin. He should have close follow up with his insurance application investigator at [facility]. (2) CAD (coronary artery disease): Code(s): I25.10 - Atherosclerotic heart disease of [place] coronary artery without angina pectoris Status: Acute Assessment and Plan: As above. (3) Hypertension: Code(s): I10 - Essential (primary) hypertension Status: Acute Assessment and Plan: At goal (4) Type 2 diabetes mellitus: Code(s): E11.9 - Type 2 diabetes mellitus without complications Status: Acute Assessment and Plan: Per hospitalist (5) Hyperlipidemia: Code(s): E78.5 - Hyperlipidemia, unspecified Status: Acute Assessment and Plan: On high-dose statin (6) Congestive heart failure: Code(s): I50.9 - Heart failure, unspecified Status: Acute Assessment and Plan: No evidence of decompensated heart failure on exam. Continue medical therapy for cardiomyopathy with Entresto, metoprolol. GDMT can be optimized as an outpatient by his primary insurance application investigator. Subjective Date/time seen: 11/23/21 08:47 Cardiology follow up for CAD Interval history: He is feeling well this morning. Complaining of fatigue. He denies any chest pain or shortness of breath. Review of Systems Review of Systems: All systems reviewed & are unremarkable except as noted in HPI and below Constitutional: Constitutional: Denies body ache(s) and Denies excessive sweating Eyes: Eyes: Denies blurry vision ENT: Reports Normal hearing present Cardiovascular: Cardiovascular: Reports chest pain Respiratory: Respiratory: Denies chest congestion Gastrointestinal: Gastrointestinal: Denies abdominal pain Genitourinary: Genitourinary: Denies hematuria Musculoskeletal: Musculoskeletal: Denies back pain Integumentary/Breasts: Skin/Breast: Denies dry skin Neurologic: Reports Normal hearing present and Denies confusion Psychiatric: Psychiatric: Denies anxiety and Denies confusion Endocrine: Endocrine: Denies excessive sweating Hematologic/Lymphatic: Hematologic/Lymphatic: Denies easy bleeding Allergic/Immunologi
--- NOTE | 2021-11-23 10:18 | PM.DS ---
DS: Admitting Diagnosis Discharge Date 11/22/2021 Admitting Diagnosis chest pain DS: Discharge Diagnosis Discharge Diagnosis (1) Non-ST elevation [place] (NSTEMI): Code(s): I21.4 - Non-ST elevation (NSTEMI) myocardial infarction Status: Acute Assessment and Plan: -continue to trend troponins. The 1st set was negative and the 2nd troponin was 0.274. The patient has a strong cardiac history with quadruple bypass and 5 stents -the patient had tried nitro at home and also takes aspirin at home as well as Plavix -cardiology has been consulted. Further recommendation per Cardiology. -continue with heparin drip -I will hold aspirin and Plavix for now. -analgesics as needed 11/21/2021 interval history: 71-year-old male with history of coronary artery disease status post CABG and 5 stents presented with chest pain is found to have elevated tropes currently on heparin drip. seen by cardiology resume aspirin Plavix and added metoprolol 12.5 mg b.i.d. and continue isosorbide nitrate, Crestor, and entresto, will hold metformin, patient is scheduled to have cardiac catheterization tomorrow will keep the patient NPO after midnight will follow-up and further recommendation to follow (2) CAD (coronary artery disease): Code(s): I25.10 - Atherosclerotic heart disease of [place] coronary artery without angina pectoris Status: Acute Assessment and Plan: -history of a quadruple bypass with 5 stents. 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 -continue amlodipine as blood pressure allows (4) Type 2 diabetes mellitus: Code(s): E11.9 - Type 2 diabetes mellitus without complications Status: Acute Assessment and Plan: -hold metformin in the event that he may need to go to cardiac catheterization -Accu-Cheks AC and HS with sliding scale (5) Anxiety: Code(s): F41.9 - Anxiety disorder, unspecified Status: Acute Assessment and Plan: -continue with home medication of volume (6) Hyperlipidemia: Code(s): E78.5 - Hyperlipidemia, unspecified Status: Acute Assessment and Plan: -continue with rosuvastatin (7) Congestive heart failure: Code(s): I50.9 - Heart failure, unspecified Status: Acute Assessment and Plan: -the patient is on Entresto we can continue with that and monitor his BUN and creatinine -continue Toprol -continue torsemide if blood pressure allows. (8) Neuropathy: Code(s): G62.9 - Polyneuropathy, unspecified Status: Acute Assessment and Plan: -continue gabapentin (9) Depression: Code(s): F32.A - Depression, unspecified Status: Acute Assessment and Plan: -continue sertraline (10) RLS (restless legs syndrome): Code(s): G25.81 - Restless legs syndrome Status: Acute Assessment and Plan: -continue gabapentin -continue Requip DS: Summary Hospital Course Reason for hospitalization: Chief Complaint: chest pain Narrative: This is a 71-year-old male patient with the past medical history of coronary artery disease with quadruple bypass and 5 stents.? His last stent was in 2019.? He also has a medical history of being diabetic as well.? The patient stated he has been taking and aspirin Plavix as prescribed.? The patient stated he was taking nitro at home and that typically gets rid of his chest pain.? The patient stated that he had chest pain that started around 11:00 a.m. this morning when he was just sitting around.? The pressure was similar to when he had a myocardial infarction last time it radiated to his left arm and he had some numbness.? It has improved some but is still present.? He takes an aspirin every day but he was given 3 baby aspirin EN route to the hos
== END 2021-11-23 11:12 | disposition home or self-care (01) | DRG 281 ==
LOC: ANHED 16:09 → ANHIMU 17:50
PROVIDERS: Internal Medicine; Internal Medicine Cardiovascular Disease; Nurse Practitioner; Specialist; Admitting Provider Internal Medicine; Emergency Provider Emergency Medicine; Visit Provider Family Medicine
PROC: 4A023N7 Measurement of Cardiac Sampling and Pressure, Left Heart, Percutaneous Approach (ICD-10-PCS; principal; 2021-11-22 13:00)
DX: I21.4 Non-ST elevation (NSTEMI) myocardial infarction (principal); I25.810 Atherosclerosis of coronary artery bypass graft(s) without angina pectoris; E78.5 Hyperlipidemia, unspecified; E11.42 Type 2 diabetes mellitus with diabetic polyneuropathy; F41.9 Anxiety disorder, unspecified; F32.A Depression, unspecified; G25.81 Restless legs syndrome; I44.7 Left bundle-branch block, unspecified; I25.10 Atherosclerotic heart disease of native coronary artery without angina pectoris; I25.5 Ischemic cardiomyopathy; I24.9 Acute ischemic heart disease, unspecified; I25.2 Old myocardial infarction; I11.0 Hypertensive heart disease with heart failure; I50.9 Heart failure, unspecified; Z95.1 Presence of aortocoronary bypass graft; Z95.5 Presence of coronary angioplasty implant and graft; Z79.82 Long term (current) use of aspirin; Z79.02 Long term (current) use of antithrombotics/antiplatelets; Z95.818 Presence of other cardiac implants and grafts; Z79.4 Long term (current) use of insulin; Z79.84 Long term (current) use of oral hypoglycemic drugs; Z86.16 Personal history of COVID-19
CPT/HCPCS: 36415; 71046; 71275; 80048; 80053; 82550; 82948; 83036; 83605; 83615; 83690; 83735; 84443; 84484; 85025; 85610; 85730; 93005; 93455; 96365; 99291; A9270; C1887; C1894; C8929; G0378; J0461; J1644; J1815; J2250; J3010; J7030; J7040; Q9957; Q9967

== ENCOUNTER 2024-11-05 13:06 | Outpatient (RCR) | payer MEDICARE, SELFPAY ==
--- NOTE | 2024-11-05 14:10 | PTOPEVAL1 ---
Assessment and note entered by Elizabeth Snyder DPT Evaluation Information Assessment Status Evaluation Diagnosis low back pain ICD-10 Condition Codes (PT) Pain in low back M54.50 Onset 10/16/24 Subjective Information Patient reports he has low back pain for about a year. He reports he has had x-rays that show disc involvement. He reports he is not able to be cleared to have surgery due to cardiac issues. He reports back pain is worse with walking, bending over, or lifting. He reports pain is mostly to the L lower back but does not radiate. He reports he is retired. Reported Pain Level Pain Score 5: Self Report Assessment PT Clinical Summary Mr. Mcfarland is a 74 year old male who presents to PT with low back pain. Patient demonstrates decreased B LE strength, impaired posture, and decreased B LE flexibility impairing his ability to ambulate prolonged distances, squat to fruit or nut picker objects and carry objects around the home. He would benefit from skilled PT to address impairments and return to PLOF. Plan of Care Interventions Electrical Stimulation,Gait Training,Hot Pack/Cold Pack,Manual Therapy,Mechanical Traction,Neuro Re- education,Patient/Caregiver Education,Therapeutic Activities,Therapeutic Exercise PT Services Indicated Yes Treatment Frequency and 2x weekly for 10 visits Duration These treatments will address the objective and functional deficits as defined above. The patient will be advanced safely and appropriately in order for the patient to progress towards his/her prior level of function. Additional exercises will be introduced and as well as a comprehensive home exercise program upon discharge, if needed, ?to ensure carryover of functional gains achieved in the clinic. This treatment plan has been reviewed and agreement upon by the patient.
--- NOTE | 2024-11-27 12:18 | PCPTNOTE ---
Cancelled session. Reports he cannot make it today.
--- NOTE | 2024-12-03 14:05 | PCPTNOTE ---
Patient called & cancelled scheduled appointment this date due to not able to make it in. -Sasha Ott, PT
--- NOTE | 2024-12-17 12:08 | PTOPDC ---
Assessment and note entered by Elizabeth Snyder DPT Evaluation Information Assessment Status Discharge Diagnosis low back pain ICD-10 Condition Codes (PT) Pain in low back M54.50 Onset 10/16/24 Subjective Information Patient reports that since starting PT he feels like his back is about the same. He reports that lifting objects continue to be the most challenging. He reports he does feel better after PT sessions but improvement only lasts about an hour. Reported Pain Level Pain Score 6: Self Report Assessment PT Clinical Summary Mr. Mcfalrand has attended 10 visits of skilled PT with limited progress towards goals. He demonstrates continued deficits in LE strength and flexibility. He has pain and difficulty with picking up objects up off the floor. He has gotten temporary relief from PT sessions but pain returns after a few hours at home. He will be discharged at this time due to limited progress made since start of care. Plan of Care PT Services Indicated No
== END 2024-12-17 17:38 | disposition home or self-care (01) ==
LOC: CHSPT 13:06
PROVIDERS: Visit Provider Orthopaedic Surgery
DX: M54.50 Low back pain, unspecified (principal); M48.061 Spinal stenosis, lumbar region without neurogenic claudication; M51.369 Other intervertebral disc degeneration, lumbar region without mention of lumbar back pain or lower extremity pain
CPT/HCPCS: 97110; 97140; 97150; 97161; 97530